=== PATIENT | male | born 1970 | race Caucasian/White ===

== ENCOUNTER 2021-04-28 20:15 | Emergency (ER) | payer OTHER ==
[2021-04-28 21:06] LABS: BASOPHIL 0.3 % (0-2); EOSINOPHIL 1.3 % (0-5); HCT 45.6 % (42.0-52.0); HGB 15.7 g/dl (13.2-18.0); LYMPHOCYTE 24.6 % (15-48); MCH 32.9 pg (25.0-31.0); MCHC 34.4 g/dL (32.0-36.0); MCV 95.6 fL (78.0-100.0); MONOCYTE 5.4 % (0-12); MPV 9.1 fL (6.0-9.5); NRBC 0; PLT 341 K/uL (150-400); RBC 4.77 M/uL (4.70-6.00); WBC 21.7 K/uL (4.0-10.5)
[2021-04-28 21:07] LABS: NEUTROPHIL 67.7 % (41-80)
[2021-04-28 21:29] LABS: ALBUMIN 3.6 g/dL (3.4-5.0); BILIRUBIN - TOTAL 0.2 mg/dL (0.2-1.0); BUN/CREAT RATIO (CALC) 15.2 RATIO; CREATININE 1.05 mg/dL (0.67-1.17); GLOBULIN (CALCULATION) 3.7 g/dL; POTASSIUM 3.8 mmol/L (3.5-5.1); TOTAL PROTEIN 7.3 g/dL (6.4-8.2)
[2021-04-28] MEDS ORDERED: NORCO 5-325 TA1 EACH PO (22:11)
== END 2021-04-28 22:26 | disposition home or self-care (01) ==
LOC: FER 20:15
PROVIDERS: Emergency Medicine
DX: S82.432A Displaced oblique fracture of shaft of left fibula, initial encounter for closed fracture (principal); D72.829 Elevated white blood cell count, unspecified; F17.210 Nicotine dependence, cigarettes, uncomplicated; W19.XXXA Unspecified fall, initial encounter
CPT/HCPCS: 36415; 73610; 80053; 85025; J2270; J2405